=== PATIENT | male | born 1935 | race Caucasian/White ===

== ENCOUNTER 2017-11-17 15:04 | Emergency (ER) | payer MEDICARE, OTHER, SELFPAY ==
[2017-11-17 15:04] VITALS: BP 162/83; PULSE 75; RESP 16; TEMP 36.6; BMI 31.0
[2017-11-17] MEDS: 0.9% Normal Saline 1,000 ML 1000 ML IV (15:31)
--- NOTE | 2017-11-17 15:34 | ED.VISSUMM ---
- ER Visit Summary Date of Service: 11/17/17 Chief Complaint: Diarrhea History of Present Illness: The patient is a 82 M states the last 2 weeks he has had diarrhea. No response to Pepto-Bismol. Some improvement with Imodium. He and his primarily drink bottled water but they do have a large house which she drinks from time to time. had similar symptoms that resolved in several days. He states it is watery brown stool. No melena. He is on Xarelto. He denies any significant abdominal discomfort. He denies any recent antibiotic any recent travel. Surgery, hospitalization for extended care facility recently. No med changes recently. Physical Examination: Very well-appearing older male. Vital signs are stable and afebrile. No distress. H EENT exam unremarkable. Neck nontender no lymphadenopathy. Lungs clear to auscultation bilaterally. Heart regular rhythm no murmur. Abdomen soft nontender. Normal bowel sounds no peritoneal signs. No distention. Moving all 4 extremities. No edema. Neurologically is awake alert no focal deficits. Skin exam normal. Back exam normal nontender. Test Results: CBC normal with a white count of 7. Normal H&H. Electrolytes unremarkable. With a creatinine 1.1 and a gap of 7. Patient was unable to give any stool at this time for a stool culture to be done. Patient has been in the ER nearly 3 hours. Emergency Department Course and Treatment: Screening labs will be obtained along with a C differential culture. Given a liter of fluids. Treatment Plan: Exam patient is doing well both 1415 and 1455. His are comfortable being discharged home. He will be given a stool culture container and if he has another episode of diarrhea will take it into his primary care physician for a C. difficile and/or stool cultures to be obtained. He has had 2 prior CAT scans in May of last year basically they are unremarkable other than gallstones. I do not feel he needs a CAT scan at this time. Disposition: Discharge Impression: Acute diarrhea of uncertain etiology This note was generated with [employer] dictation software. It may contain incorrect words, spelling, and punctuation that were not noted in review of the chart prior to signing ED Disposition - Plan for ED Patient: Chief Complaint: Diarrhea Referrals: Vipul Chiang MD [Primary Care Provider] -
[2017-11-17 15:48] LABS: Absolute Lymphocyte Count 1.29 X10^3/ul (0.83-4.51); Absolute Neutrophil Count 5.2 X10^3/uL (2.0-7.7); Basophil# 0.03 X10^3/uL; Basophil% 0.4 % (0-1); Eosinophil# 0.19 X10^3/uL; Eosinophils% 2.5 % (0-5); Hematocrit 41.3 % (40-54); Hemoglobin 13.7 g/dl (13.0-16.5); Lymphocyte # 1.29 X10^3/ul (4.0); Lymphocyte % 16.7 % (19-41); Mean Corp Hgb Conc 33.2 g/gl (32-36); Mean Corpuscular Hgb 33.3 pg (27.0-32.0); Mean Corpuscular Volume 100.5 fL (80-94); Mean Platelet Vol. 10.3 fl (6.2-12.0); Neutrophil # 5.16 X10^3/uL (2.7-7.7); Neutrophil % 66.8 % (47-70); Platelet Count 255 K/mm3 (150-450); RBC Distribution Width CV 12.7 % (11.6-14.6); RBC Distribution Width SD 45.6 fl (35.1-43.9); Red Blood Count 4.11 M/mm3 (4.6-6.2); White Blood Count 7.7 K/mm3 (4.4-11.0)
[2017-11-17 15:53] LABS: POSITIVE COUNT NO; POSITIVE DIFFERENTIAL NO; POSITIVE MORPHOLOGY NO
[2017-11-17 16:10] LABS: Anion Gap 7 (5-15); BUN 17 mg/dL (7-18); BUN/Creat Ratio 15.3 RATIO (10-20); Calcium,Total 8.9 mg/dL (8.5-10.1); Chloride 105 mmol/L (98-107); Creatinine, Serum 1.11 mg/dL (0.70-1.30); EST Glomerular Filtration Rate 68 mL/min (>60); Est Glom Filt Rate - Afr Amer 82 mL/min (>60); Estimated Creatinine Clearance 58.26 ml/min; Glucose 109 mg/dL (74-106); Potassium 3.8 mmol/L (3.5-5.1); Sodium Level 142 mmol/L (136-145)
[2017-11-17 17:07] VITALS: BP 188/76; PULSE 61; RESP 18; O2SAT 97
--- NOTE | 2017-11-17 18:03 | ED.DEP ---
ED Disposition - Plan for ED Patient: Disposition: Home or Assisted Living Chief Complaint: Diarrhea Instructions: ED Diarrhea Viral Referrals: Vipul Chiang MD [Primary Care Provider] - 3-5 Days if not improving Additional Instructions: Plenty of fluids and rest. [place] diet and increase slowly. Imodium as needed for diarrhea. If not improving and continued diarrhea take a stool sample in your primary care physician's office for them to have stool cultures obtained especially for C. difficile.
[2017-11-17 18:09] VITALS: BP 188/71; PULSE 71; RESP 18; O2SAT 99
== END 2017-11-17 18:10 | disposition home or self-care (01) ==
PROVIDERS: Emergency Provider Emergency Medicine; Family Provider Family Medicine; PCP Family Medicine
DX: R19.7 Diarrhea, unspecified (principal); I25.10 Atherosclerotic heart disease of native coronary artery without angina pectoris; I10 Essential (primary) hypertension; R73.03 Prediabetes; Z79.01 Long term (current) use of anticoagulants; Z79.84 Long term (current) use of oral hypoglycemic drugs; Z79.899 Other long term (current) drug therapy; Z95.1 Presence of aortocoronary bypass graft
CPT/HCPCS: 80048; 85025; 96360; 96361; 99283; J7030

== ENCOUNTER → 2021-05-01 13:49 | Outpatient (CLI) | payer MEDICARE, OTHER, SELFPAY ==
--- NOTE | 2021-05-01 13:53 | ECHOCS_ITS ---
Reason For Study: s/p CABG, Thoracic AA Procedure This was a 2D Doppler, Color Flow transthoracic echocardiogram. The study was technically difficult. Contrast injection was performed. Exam performed in department. Left Ventricle Normal left ventricle. Left ventricular systolic function is normal. The estimated ejection fraction is 65 %. Diastolic function is indeterminate. No regional wall motion abnormalities noted. Right Ventricle Normal RV size. Normal systolic function. Atria The left atrium is mildly enlarged. Normal right atrium. No doppler evidence for ASD. Mitral Valve There is mild mitral annular calcification. Extension of the mitral annular calcification onto the base of the posterior mitral valve leaflet. Trivial mitral valve insufficiency. Tricuspid Valve Normal tricuspid valve. Mild tricuspid valve insufficiency. Right ventricular systolic pressure estimated to be 30 mmHg. Aortic Valve Trisinus/trileaflet aortic valve. Mild diffuse aortic valve thickening. Mild focal aortic valve calcification. Pulmonic Valve The pulmonic valve is not well visualized. Great Vessels The ascending aorta is mildly dilated. Pericardium/Pleural No pericardial effusion. Medication Diluted definity 2ml given slow IV push to enhance endocardial definition. MMode/2D Measurements & Calculations LVIDd: 4.7 cm IVSd: 1.2 cm Ao root diam: 4.1 cm LVIDs: 2.3 cm LVPWd: 1.3 cm RVDd: 3.7 cm FS: 49.9 % LAV(MOD-bp): 35.5 ml LVAd ap4: 26.7 cm2 SV(MOD-sp4): 48.0 ml LAV(MOD-bp) Indexed: 15.5 ml/m2 LVLd ap4: 8.0 cm LAV(MOD-sp2): 31.9 ml EDV(MOD-sp4): 74.2 ml LAV(MOD-sp4): 38.0 ml EDV(sp4-el): 75.7 ml LVAs ap4: 14.5 cm2 LVLs ap4: 6.9 cm ESV(MOD-sp4): 26.3 ml ESV(sp4-el): 25.8 ml EF(MOD-sp4): 64.6 % EF(sp4-el): 66.0 % SV(sp4-el): 50.0 ml LA A4 area: 17.3 cm2 LA dimension(2D): 4.9 cm RA A4 area: 14.2 cm2 Doppler Measurements & Calculations MV E max chris: 67.9 cm/sec Lat Peak E' Chirs: 7.4 cm/sec Med Peak E' Chris: 4.8 cm/sec MV A max chris: 81.9 cm/sec E/E' lat: 9.2 E/E' med: 14.0 MV E/A: 0.83 Ao V2 max: 150.2 cm/sec LV V1 max: 86.1 cm/sec PA V2 max: 113.9 cm/sec Ao max P.0 mmHg LV V1 max P.0 mmHg Ao V2 mean: 102.8 cm/sec Ao mean P.6 mmHg Ao V2 VTI: 28.2 cm TR max chris: 261.4 cm/sec TR max P.3 mmHg ECHO/Echo Complete W/ Contrast Interpretation Summary The study was technically difficult. Contrast injection was performed. Left ventricular systolic function is normal. The estimated ejection fraction is 65 %. No regional wall motion abnormalities noted. The left atrium is mildly enlarged. There is mild mitral annular calcification. Extension of the mitral annular calcification onto the base of the posterior mi tral valve leaflet. Trivial mitral valve insufficiency. Mild tricuspid valve insufficiency. Mild diffuse aortic valve thickening. Mild focal aortic valve calcification. The ascending aorta is mildly dilated. Right ventricular systolic pressure estimated to be 30 mmHg. Diastolic function is indeterminate. Ordering Physician: Benny Lyle Referring Physician: Vipul Chiang Performed By: Babita Knight, RDCS, RVT
== END ==
PROVIDERS: PCP Family Medicine; Referring Provider Internal Medicine Cardiovascular Disease; Visit Provider Internal Medicine Cardiovascular Disease
DX: I26.99 Other pulmonary embolism without acute cor pulmonale (principal)
CPT/HCPCS: 93306; Q9957; A4216; C8929

== ENCOUNTER → 2024-04-12 | Outpatient (CLI) | payer MEDICARE, SELFPAY ==
[2024-04-12 15:33] LABS: ALB/GLOB Ratio 0.9 RATIO (0.9-2.4); AST(SGOT) 15 U/L (15-37); Alanine Aminotransfer ALT/SGPT 16 U/L (16-61); Albumin, Serum 3.4 g/dL (3.2-5.0); Alkaline Phosphatase 96 U/L (45-117); Anion Gap 4 (5-15); BUN 33 mg/dL (7-18); BUN/Creat Ratio 21.9 RATIO (10-20); Calcium,Total 9.1 mg/dL (8.5-10.1); Chloride 105 mmol/L (98-107); Creatinine, Serum 1.51 mg/dL (0.70-1.30); EST Glomerular Filtration Rate 47 mL/min (>60); Est Glom Filt Rate - Afr Amer 57 mL/min (>60); Globulin 3.8 g/dL (2.2-4.2); Glucose 115 mg/dL (74-106); Potassium 3.7 mmol/L (3.5-5.1); Protein, Total 7.2 g/dL (6.4-8.2); Sodium Level 139 mmol/L (136-145)
== END | disposition home or self-care (01) ==
LOC: LAB 13:56
PROVIDERS: PCP Family Medicine; Referring Provider Internal Medicine Cardiovascular Disease; Visit Provider Internal Medicine Cardiovascular Disease
DX: I25.10 Atherosclerotic heart disease of native coronary artery without angina pectoris (principal); E11.9 Type 2 diabetes mellitus without complications; I77.810 Thoracic aortic ectasia; I10 Essential (primary) hypertension; E78.5 Hyperlipidemia, unspecified; G47.33 Obstructive sleep apnea (adult) (pediatric); R60.0 Localized edema; Z86.711 Personal history of pulmonary embolism
CPT/HCPCS: 36415; 80053; 84443

== ENCOUNTER → 2024-04-29 | Outpatient (CLI) | payer MEDICARE, SELFPAY ==
[2024-04-29 10:52] LABS: Anion Gap 5 (5-15); BUN 31 mg/dL (7-18); BUN/Creat Ratio 21.5 RATIO (10-20); Chloride 104 mmol/L (98-107); Creatinine, Serum 1.44 mg/dL (0.70-1.30); EST Glomerular Filtration Rate 49 mL/min (>60); Est Glom Filt Rate - Afr Amer 60 mL/min (>60); Glucose 133 mg/dL (74-106); Potassium 3.8 mmol/L (3.5-5.1); Sodium Level 139 mmol/L (136-145)
== END | disposition home or self-care (01) ==
LOC: LAB 09:18
PROVIDERS: PCP Family Medicine; Referring Provider Physician Assistant Medical; Visit Provider Physician Assistant Medical
DX: E78.2 Mixed hyperlipidemia (principal)
CPT/HCPCS: 36415; 80048

== ENCOUNTER → 2024-04-29 | Outpatient (CLI) | payer MEDICARE, SELFPAY ==
--- NOTE | 2024-04-29 09:39 | ECHOCS_ITS ---
Reason For Study: CAD/ASHD Procedure This was a 2D Doppler, Color Flow transthoracic echocardiogram. The study was technically difficult. Exam performed in department. Left Ventricle Normal LV size. Mild concentric left ventricular hypertrophy. The left ventricular ejection fraction is 65 %. Diastolic function is indeterminate. Right Ventricle Mildly dilated right ventricle with mild RV systolic dysfunction. Atria Normal left atrium. The right atrium is mildly enlarged. Mitral Valve Mild focal mitral valve calcification of the anterior leaflet. Trivial mitral valve insufficiency. Tricuspid Valve Trivial tricuspid valve insufficiency. Right ventricular systolic pressure estimated to be 49 mmHg. Aortic Valve Aortic valve moderately calcified with restricted leaflet motion. Consider mild aortic valve stenosis. Gradient likely underestimated. Pulmonic Valve The pulmonic valve is not well visualized. Great Vessels Normal sized aortic root. Pericardium/Pleural No pericardial effusion. Medication Diluted definity 3ml given slow IV push to enhance endocardial definition. MMode/2D Measurements & Calculations LVIDd: 4.4 cm IVSd: 1.3 cm LVOT diam: 2.4 cm LVIDs: 2.9 cm LVPWd: 1.3 cm RVDd: 3.8 cm FS: 33.1 % LVOT area: 4.6 cm2 Ao root diam: 3.6 cm LAV(MOD-bp): 50.0 ml LVAd ap4: 33.2 cm2 LAV(MOD-bp) Indexed: 21.9 ml/m2 LVLd ap4: 8.6 cm LAV(MOD-sp2): 42.7 ml EDV(MOD-sp4): 105.9 ml LAV(MOD-sp4): 54.3 ml EDV(sp4-el): 108.2 ml LVAs ap4: 18.0 cm2 LVLs ap4: 6.9 cm ESV(MOD-sp4): 40.7 ml ESV(sp4-el): 39.6 ml EF(MOD-sp4): 61.6 % EF(sp4-el): 63.4 % SV(MOD-sp4): 65.2 ml SV(sp4-el): 68.5 ml Aortic Valve Planimetry: 2.1 cm2 LA A4 area: 19.9 cm2 LA dimension(2D): 4.1 cm RA A4 area: 23.1 cm2 TAPSE: 1.5 cm Time Measurements MV dec time: 0.28 sec Doppler Measurements & Calculations MV E max chris: 69.4 cm/sec Lat Peak E' Chris: 8.2 cm/sec Med Peak E' Chris: 8.3 cm/sec MV A max chris: 87.7 cm/sec E/E' lat: 8.5 E/E' med: 8.3 MV E/A: 0.79 Ao V2 max: 156.7 cm/sec LV V1 max: 75.8 cm/sec SV(LVOT): 89.0 ml Ao max P.8 mmHg LV V1 max P.3 mmHg Ao V2 mean: 108.1 cm/sec LV V1 mean P.4 mmHg Ao mean P.4 mmHg LV V1 mean: 56.0 cm/sec Ao V2 VTI: 33.2 cm LV V1 VTI: 19.4 cm AV (velocity ratio): 0.59 ARCHIE(I,D): 2.7 cm2 ARCHIE(V,D): 2.2 cm2 PA V2 max: 75.3 cm/sec TR max chris: 291.7 cm/sec TR max P.0 mmHg ECHO/Echo Complete W/ Contrast Interpretation Summary Mild concentric left ventricular hypertrophy. The left ventricular ejection fraction is 65 %. Diastolic function is indeterminate. Mildly dilated right ventricle with mild RV systolic dysfunction. The right atrium is mildly enlarged. Right ventricular systolic pressure estimated to be 49 mmHg. Aortic valve moderately calcified with restricted leaflet motion. Consider mild aortic valve stenosis. Gradient likely underestimated. Ordering Physician: Darnell Brennan Referring Physician: ROLAN RODRIGUEZ Performed By: Keren Otoole RDCS
== END | disposition home or self-care (01) ==
LOC: CVS 09:38
PROVIDERS: PCP Family Medicine; Referring Provider Internal Medicine Cardiovascular Disease; Visit Provider Internal Medicine Cardiovascular Disease
DX: R60.0 Localized edema (principal)
CPT/HCPCS: 93306; Q9957; A4216; C8929

== ENCOUNTER → 2024-11-17 | Outpatient (CLI) | payer MEDICARE, SELFPAY ==
[2024-11-17 13:17] LABS: ALB/GLOB Ratio 1.3 RATIO (0.9-2.4); AST(SGOT) 21 U/L (<=37); Alanine Aminotransfer ALT/SGPT 13 U/L (<=46); Alkaline Phosphatase 102 U/L (40-129); Anion Gap 10 (5-15); BUN 30 mg/dL (4-19); BUN/Creat Ratio 19.5 RATIO (10-20); Calcium,Total 9.3 mg/dL (7.6-11.0); Carbon Dioxide 28.3 mmol/L (21.0-32.0); Chloride 103 mmol/L (98-108); Creatinine, Serum 1.55 mg/dL (0.70-1.20); EST Glomerular Filtration Rate 43 (>60); Glucose 133 mg/dL (70-99); Potassium 4.3 mmol/L (3.3-5.1); Sodium Level 141 mmol/L (133-145); Total Bilirubin 0.55 mg/dL (0.00-1.30)
== END | disposition home or self-care (01) ==
PROVIDERS: PCP Family Medicine; Referring Provider Internal Medicine Cardiovascular Disease; Visit Provider Internal Medicine Cardiovascular Disease
DX: R60.0 Localized edema (principal); I10 Essential (primary) hypertension
CPT/HCPCS: 36415; 80053